=== PATIENT | female | born 1990 ===

== ENCOUNTER 2017-12-18 20:26 | Emergency (ER) | payer MEDICAID ==
[2017-12-18 20:42] VITALS: BP 108/70; PULSE 79; RESP 18; TEMP 98.8; O2SAT 100
--- NOTE | 2017-12-18 20:57 | ED PDOC ---
HPI: General Adult Time Seen by Provider: 12/18/17 20:46 Chief Complaint (Nursing): Abnormal Skin Integrity Chief Complaint (Provider): facial infection History Per: Patient History/Exam Limitations: no limitations Current Symptoms Are (Timing): Still Present Additional Complaint(s): 27 year old female presents to the ED with a facial lesion that she first noticed 3 days. She states area started as a small pimple and has now gotten bigger and has purulent discharge. She denies fever or chills. She complains of pain to right side of her face. PMD: in [place] Past Medical History Reviewed: Historical Data, Nursing Documentation, Vital Signs Vital Signs: Last Vital Signs Temp 98.8 F 12/18/17 20:40 Pulse 79 12/18/17 20:40 Resp 18 12/18/17 20:40 BP 108/70 12/18/17 20:40 Pulse Ox 100 12/18/17 20:58 - Medical History PMH: No Chronic Diseases - Surgical History Surgical History: No Surg Hx - Family History Family History: States: No Known Family Hx - Living Arrangements Living Arrangements: With Family - Social History Current smoker - smoking cessation education provided: No Alcohol: None Drugs: Denies - Home Medications Home Medications: Ambulatory Orders Medication Instructions Recorded Clindamycin [Cleocin] 300 mg PO QID #28 cap 12/18/17 Ibuprofen [Motrin] 600 mg PO Q6 PRN #15 tab 12/18/17 - Allergies Allergies/Adverse Reactions: Allergies Allergy/AdvReac Type Severity Reaction Status Date / Time No Known Allergies Allergy Verified 12/18/17 20:40 Review of Systems ROS Statement: Except As Marked, All Systems Reviewed And Found Negative Constitutional: Negative for: Fever ENT: Positive for: Other (pustular lesion to right side of face) Skin: Positive for: Lesions (right sided with pain ) Physical Exam - Reviewed Nursing Documentation Reviewed: Yes Vital Signs Reviewed: Yes - Physical Exam Appears: Positive for: Well, Non-toxic, No Acute Distress Head Exam: Positive for: ATRAUMATIC, NORMAL INSPECTION, NORMOCEPHALIC Skin: Positive for: Normal Color (pustular region to the right maxillary region with minimal active drainage and localized erythema) Eye Exam: Positive for: Normal appearance Cardiovascular/Chest: Positive for: Regular Rate, Rhythm Respiratory: Positive for: Normal Breath Sounds Extremity: Positive for: Normal ROM (upper and lower) Neurologic/Psych: Positive for: Alert, Oriented - ECG O2 Sat by Pulse Oximetry: 100 (RA) Pulse Ox Interpretation: Normal Medical Decision Making Medical Decision Making: Time: 2051 Impression: Pustular acne to face --Urine --Clindamycin --Motrin Patient given prescriptions for clindamycin and Motrin. She was advised to keep area clean and dry and follow-up in 2-3 days with primary care doctor. Patient is also aware she can return to ED any time if acutely worse. Scribe Attestation: Documented by Jagruti Wilcox, acting as a scribe for Linnea Bentley PA-C. Provider Scribe Attestation: All medical record entries made by the Scribe were at my direction and personally dictated by me. I have reviewed the chart and agree that the record accurately reflects my personal performance of the history, physical exam, medical decision making, and the department course for this patient. I have also personally directed, reviewed, and agree with the discharge instructions and disposition. Disposition - Clinical Impression Clinical Impression: Pustular acne - Patient ED Disposition Is Patient to be Admitted: No Counseled Patient/Family Regarding: Diagnosis, Need For Followup, Rx Given - Disposition Referrals: [facility] [Outside] Disposition: Routine/Home Disposition Time: 21:18 Condition: STABLE Additional Instructions: Wash area daily with soap and water. Take rx meds as directed. Follow up with primary care doctor in 2-3 days. Prescriptions: Clindamycin [Cleocin] 300 mg PO QID #28 cap Ibuprofen [Motrin] 600 mg PO Q6 PRN #15 tab PRN Reason: Pain, Moderate (4-7) Instructions: Acne (ED), Boil Forms: [employer] ([place])
== END 2017-12-18 21:37 | disposition home or self-care (01) ==
LOC: H.ER 20:26
DX: L70.0 Acne vulgaris (principal)